=== PATIENT | male | born 1970 | race Caucasian/White ===

== ENCOUNTER 2025-08-10 05:56 | Day surgery (SDC) | payer OTHER ==
[2025-08-10] MEDS ORDERED: Lactated Ringers 1,000 ML IV ONE (06:14)
[2025-08-10 06:15] VITALS: RESP 18
[2025-08-10] MEDS: Lactated Ringers 1,000 ML IV SCH (06:28)
[2025-08-10] MEDS ORDERED: propofoL IV ONE ×2 (07:06→07:20)
[2025-08-10] MEDS ORDERED: Xylocaine-Mpf 2% 5 Ml Vial ONE (07:07)
[2025-08-10 07:57] VITALS: O2SAT 97
[2025-08-10 08:02] VITALS: TEMP 97
[2025-08-10 08:07] VITALS: PULSE 62
[2025-08-10 08:09] VITALS: BP 106/74
--- NOTE | 2025-08-11 12:03 | OP ---
SURGERY DATE/TIME: 08/10/2025 [id number] PREOPERATIVE DIAGNOSIS: Screening colonoscopy. POSTOPERATIVE DIAGNOSIS: Colon polyps x8. PROCEDURE: Colonoscopy. SURGEON: Alfredito Dove MD. ANESTHESIA: MAC by Bernardino Apple CRNA. ESTIMATED BLOOD LOSS: Minimal. SPECIMENS: There are 2 hot forceps polypectomies, 1 from the sigmoid colon and 1 from the rectum, and then 6 cold forceps polypectomies from the distal sigmoid colon. DESCRIPTION OF PROCEDURE AND FINDINGS: After informed written consent was obtained, the patient was taken to the endoscopy suite. He was placed in the left lateral decubitus position and anesthesia was titrated to desired level of consciousness. Digital rectal exam showed normal sphincter tone and no internal lesions. The scope was inserted into the rectum and sequentially the entire colonic mucosa was traversed. The level of cecum was reached and verified with direct visualization of the ileocecal valve. Upon withdrawal, careful mucosal inspection revealed no gross abnormalities until the sigmoid colon was reached. There was a sessile polyp, which was grasped with the forceps, cauterized, and removed in its entirety, sent for pathology testing. Then, upon further withdrawal in the distal sigmoid colon, there were 6 small polyps all in the same vicinity, which were grasped with the forceps and removed cold. Those were all sent in the same container for pathology due to their close proximity and similar appearance. Prior to withdrawal, retroflexion showed a small polypoid lesion in the distal rectum near the anal verge. That was grasped with forceps, cauterized, removed, and sent for pathology. Scope was removed and the patient was transferred to the recovery room in good condition.
== END 2025-08-15 08:01 | disposition home or self-care (01) ==
LOC: SDC 05:56
PROVIDERS: ATTEND Family Medicine
DX: Z12.11 Encounter for screening for malignant neoplasm of colon (principal); D12.5 Benign neoplasm of sigmoid colon